=== PATIENT | female | born 1945 | race Caucasian/White ===

== ENCOUNTER 2017-05-23 15:20 | Observation (INO) | payer MEDICARE, BC ==
[~2017-05-23] VITALS: Ht 157.5 cm; Wt 56.0 kg
--- NOTE | ~2017-05-23 | ST ---
PATIENT:HARDIK BOBO MEDICAL RECORD: [id number] SEX: F LOCATION:[place] [id number] ORDER #: ADMISSION DATE: 05/23/17 AGE OF PATIENT: 71 REFERRING PHYSICIAN: INTERPRETING PHYSICIAN: TOM OBRIEN MD DATE OF SERVICE: 05/24/2017 Nuclear Stress Test The patient underwent a standard Lexiscan stress test without complications. The patient had 12.9 mCi of sestamibi injected for rest imaging at 8:15 in the morning and then after the standard Lexiscan stress test, which was tolerated without complications, 31.1 mCi of sestamibi was injected at 10:15. FINDINGS: The patient tolerated the procedure well. The ejection fraction was calculated to be normal. The imaging demonstrated no evidence of significant ischemia. There were no wall motion abnormalities. This is a negative test for inducible ischemia. There was a mild attenuation artifact inferiorly. TRANSINT:[id number] Voice Confirmation ID: [id number] DOCUMENT ID: [id number] TOM OBRIEN MD CC: [id number] DICTATION DATE: 05/25/172000 CUSTOMER CARE ASSOCIATE: 05/25/17 2302 DIS IN 05/24/17 [facility] [address] [place] [address]
--- NOTE | ~2017-05-23 | EC ---
PATIENT:HARDIK BOBO DATE OF SERVICE: 05/23/17 SEX: F MEDICAL RECORD: [id number] DATE OF : [birth year] LOCATION:D.M2 D.212 AGE OF PATIENT: 71 ADMISSION DATE: 05/23/17 REFERRING PHYSICIAN: INTERPRETING PHYSICIAN: TOM OBRIEN MD ECHOCARDIOGRAM REPORT ECHO CHARGES 4 ECHO COMPLETE CLINICAL DIAGNOSIS: CP ECHOCARDIOGRAPHIC MEASUREMENTS (adult normal given) AC root (d.<3.7cm) 3.3 cm LV Septum d (<1.2 cm> 1.2 cm Valve Excursion 2.2 cm LV Septum (systole) 1.8 cm Left Atria (s.<4.0cm> 2.8 cm LVPW d(<1.2cm) 14.2 cm RV (d.<2.3cm) 2.6 cm LVPW (sytole) 1.9 cm LV diastole(<5.6CM) 5.4 cm MV E-F(>70mm/sec) cm LV systole 3.3 cm LVOT Diameter 1.8 cm MV exc.(>10mm) cm Est.ejection fraction (50-75%) % Pericardial Effusion N DOPPLER: LVIT cm/sec A 122 cm/sec E 64.0 cm/sec LA cm/sec RVSP 32.1 mmHg LVOT 83.0 cm/sec AOP1/2T 545.0m/s Asc. Ao 145 cm/sec RVOT 51.0 cm/sec RA cm/sec PA 87.0 cm/sec AV Gradient Peak 8.4 mmHg AV Mean 4.1 mmHg AV Area 1.9 cm MV Gradient Peak 6.2 mmHg MV Mean 1.7 mmHg MV Area cm COMMENTS: Assembler For Puller Over Machine: Dagmar DELVALLEOE Nitro Man: 4 Dr. Obrien TAPE# PACS DATE OF SERVICE: 05/25/2017 PROCEDURE: Transthoracic echocardiogram FINDINGS: 1. The left ventricle has mild concentric left ventricular hypertrophy. Inflow characteristics are consistent with diastolic dysfunction. The overall ejection fraction is normal to hyperdynamic at 65% to 70%. 2. The right ventricle was shown to be mildly dilated or at least on the upper limits of normal. ECHOCARDIOGRAM REPORT [id number] HARDIK BOBO 3. The right atrium is normal size, normal function. 4. The left atrium is normal size, normal function. 5. The mitral valve is shown to have mild degenerative changes with moderate mitral regurgitation. 6. The aortic valve is also shown to have some aortic sclerosis with grossly normal function and mild to moderate aortic insufficiency. 7. The tricuspid valve has mild to moderate tricuspid regurgitation with RVSP of 32 mmHg. 8. The pulmonic valve has mild pulmonic insufficiency. 9. The pericardium is shown to have no pericardial effusion. 10. The IVC is not well visualized. TRANSINT:[id number] Voice Confirmation ID: [id number] DOCUMENT ID: [id number] TOM OBRIEN MD CC: [id number] DICTATION DATE: 05/25/172030 QUALITY ASSURANCE SUPERVISOR TRIM: 05/26/17 0152 DIS IN 05/24/17 [facility] [address] [place] [address]
[2017-05-23 15:54] LABS: BASOPHILS 0.3 % (0-2); HEMATOCRIT 32.4 % (36.0-48.0); HEMOGLOBIN 10.9 g/dL (12-16); IMMATURE GRANULOCYTES 0.1 % (0-5); LYMPHOCYTES 15.8 % (15-50); MCHC 33.6 g/dL (31.0-37.0); MCV 89.3 fL (80.0-100.0); MEAN PLATELET VOLUME 10.2 fL (7.4-10.4); MONOCYTES 6.1 % (2-11); NEUTROPHILS 75.7 % (40-80); PLATELET COUNT 162 10x3/uL (130-400); RBC 3.63 10x6/uL (4.00-5.40); RDW 13.4 % (11.5-14.5); WBC 7.9 10x3/uL (4.8-10.8)
[2017-05-23 16:09] LABS: ALBUMIN 3.6 g/dL (3.4-5.0); ALKALINE PHOSPHATASE 78 U/L (46-116); ALT (SGPT) 18 U/L (10-68); CALC OSMOLALITY 285 mosm/kg (275-300); CARBON DIOXIDE 29.3 mmol/L (21.0-32.0); CHLORIDE - SERUM 105 mmol/L (98-107); CREATININE - SERUM 1.1 mg/dL (0.6-1.3); GLUCOSE 127 mg/dL (74-106); POTASSIUM - SERUM 3.3 mmol/L (3.5-5.1); PROTEIN - SERUM 6.8 g/dL (6.4-8.2); SODIUM 142 mmol/L (136-145); UREA NITROGEN 16 mg/dL (7-18); eGFR NON AFRICAN AMERICAN 52 mL/min (90-120)
[2017-05-23 16:19] LABS: CHOL - HDL RATIO 1.7 ratio (2.3-4.1); CHOLESTEROL, TOTAL 124 mg/dL (0-200); CKMB 0.3 U/L (0.0-3.6); CREATINE KINASE 55 UL (21-215); HDL CHOLESTEROL 75 mg/dL (32-96); LDL CHOLESTEROL 37 mg/dL (0-100); LDL-HDL RATIO 0.5 ratio (1.5-3.5); TRIGLYCERIDE 63 mg/dL (30-200)
[2017-05-23 16:23] LABS: TROPONIN-I < 0.017 ng/mL (0.000-0.060)
[2017-05-23 20:15] VITALS: BP 149/60
[2017-05-23 20:25] VITALS: BP 149/60; Ht 157.5 cm; Wt 56.0 kg
[2017-05-23] MEDS ORDERED: ACETAMINOPHEN325 MG PO (20:57)
[2017-05-23] MEDS ORDERED: WELLBUTRIN XL150 M1 PO (20:58)
[2017-05-23] MEDS ORDERED: LUNESTA3 MG PO (20:58)
[2017-05-23] MEDS ORDERED: SINGULAIR10 MG PO (20:59)
[2017-05-23] MEDS ORDERED: TRAZODONE HCL50 MG PO (20:59)
[2017-05-23] MEDS ORDERED: ZOCOR20 MG PO (21:00)
[2017-05-23] MEDS ORDERED: LOSARTAN POTASS25 MG PO (21:01)
[2017-05-23 23:42] VITALS: BP 140/50
[2017-05-24 04:49] VITALS: BP 138/48
[2017-05-24 07:49] VITALS: BP 152/53
[2017-05-24 11:48] VITALS: BP 119/68
[2017-05-24 15:21] VITALS: BP 150/51
== END 2017-05-24 18:42 | disposition home or self-care (01) ==
LOC: D.ER 15:20 → D.M2 18:21 → OBSVTIME 18:21 → D.M2 05-24 18:42
PROVIDERS: Emergency Medicine; ADMIT Internal Medicine Cardiovascular Disease
DX: R07.9 Chest pain, unspecified (principal); I10 Essential (primary) hypertension

== ENCOUNTER 2018-03-30 17:18 | Inpatient (IN) | payer MEDICARE, BC ==
[~2018-03-30] VITALS: Ht 157.5 cm; Wt 57.4 kg
--- NOTE | ~2018-03-30 | HEMODYNAMI ---
PATIENT:HARDIK BOBO MEDICAL RECORD: [id number] : 47 LOCATION:[facility] ADMISSION DATE: 03/31/18 Generatedon:03/31/201812:03 Patient name: HARDIK BOBO Patient #: [id number] SSN: : 1945 Date of study: 03/31/2018 Page: Of Hemodynamic Procedure Report Patient Data Patient Demographics Procedure consent was obtained First Name: HARDIK Gender: Female Last Name: JIHAN : 1945 [facility] Initial: G Age: 72 year(s) Patient #: [id number] Race: Additional ID: [id number] Contact details [address]: [address] [place] [address] [address] State: [place] City: [place] Zip code: [address] Admission Admission Data Admission Date: 03/31/2018 Admission Time: 0:18 Room #: JOSE A01 Lab Results Lab Result Date: 03/31/2018 Lab Result Time: 0:00 Biochemistry Name Units Result Min Max BUN mg/dl 22 --(----)-* 7 18 Creatinine mg/dl 0.9 --(-*--)-- 0.6 1.3 Procedure Procedure Types Cath Procedure Diagnostic Procedure [facility] w/Coronaries PCI Procedure Coronary Stent Coronary Stent Initial Procedure Description Procedure Date Procedure Date: 03/31/2018 Procedure Start Time: 11:22 Procedure End Time: 12:02 Procedure Staff Name Function Wilian Kent MD Performing Physician Ha Reddy RT Monitor Murali Larry RN Nurse Lesia Weeks RT Scrub Procedure Data Cath Procedure Fluoroscopy Diagnostic fluoroscopy Total fluoroscopy Time: 6.6 time: 6.6 min min Diagnostic fluoroscopy Total fluoroscopy dose: dose: 192.44 mGy 192.44 mGy Contrast Material Contrast Material Type Amount (ml) Isovue 300 111 Entry Location Entry Primary Successful Side Size Upsize Upsize Entry Closure Succes sful Closure Location (Fr) 1 (Fr) 2 (Fr) Remarks Device Remarks Femoral Right 5 Fr 6 Fr Exoseal artery Short Estimated blood loss: 20 ml Diagnostic catheters Device Type Used For End Catheter Placement MULTIPACK JL 4.0 5Fr Procedure catheter MULTIPACK 3DRC 5Fr Procedure catheter MULTIPACK Pigtail 5 Fr Procedure catheter Procedure Medications Medication Administration Route Dosage Oxygen etCO2 Nasal cannula 2 l/min Heparin Flush Bag added to field 2 bags (1000units/500ml NS) 0.9% NaCl I.V. 100 ml/hr Fentanyl I.V. 50 mcg Versed I.V. 1 mg Fentanyl I.V. 50 mcg Versed I.V. 1 mg Fentanyl I.V. 50 mcg Heparin Bolus I.V. 6000 units Fentanyl I.V. 50 mcg Hemodynamics Rest Heart Rate: 58 (bpm) Pressure Samples Time Site Value (mmHg) Purpose Heart Use Rate(bpm) 11:33 LV 133/-8,12 Snapshot 78 Snapshots Pre Cath Intra NCS Post Cath Vital Signs Time Heart Resp SPO2 etCO2 NIBP (mmHg) Rhythm Pain Sedation Rate (ipm) (%) (mmHg) Status Level (bpm) 11:05:40 66 17 99 0 153/73(101) NSR 0 (11) 10(A) , No pain 11:09:56 60 17 100 24.7 132/73(112) NSR 0 (11) 10(A) , No pain 11:14:06 76 17 99 12 140/72(116) NSR 0 (11) 10(A) , No pain 11:18:22 62 16 98 33 124/62(96) NSR 0 (11) 10(A) , No pain 11:22:32 64 16 95 37.5 130/64(108) NSR 0 (11) 9(A) , No pain 11:26:48 65 17 97 29.2 119/56(96) NSR 0 (11) 9(A) , No pain 11:30:58 70 16 97 24 125/58(79) NSR 0 (11) 9(A) , No pain 11:35:12 81 17 97 40.5 123/57(90) NSR 0 (11) 9(A) , No pain 11:39:26 74 16 97 39.8 125/54(88) NSR 0 (11) 9(A) , No pain 11:43:40 83 17 97 42 127/56(85) NSR 0 (11) 9(A) , No pain 11:47:52 87 16 98 40.5 133/63(103) NSR 0 (11) 9(A) , No pain 11:52:02 83 17 98 35.3 145/73(98) NSR 0 (11) 9(A) , No pain 11:56:18 79 11 98 33 144/68(116) NSR 0 (11) 9(A) , No pain 12:00:32 75 9 99 30.8 151/74(111) NSR 0 (11) 9(A) , No pain Medications Time Medication Route Dose Verified Delivered Reason Notes Effectiveness by by 11:07:03 Oxygen etCO2 2 Wilian Murali Per physician Nasal l/min Yoli Larry RN cannula 11:07:12 Heparin Flush added 2 Wilian Murali used for Bag to bags Yoli Larry RN procedure (1000units/500ml field NS) 11:07:23 0.9% NaCl I.V. 100 Wilian Murali Per physician ml/hr Yoli Larry RN, MD 11:18:49 Fentanyl I.V. 50 Wilian Murali for sedation estrella Larry RN, MD 11:18:57 Versed I.V. 1 mg Wilian Murali for sedation Yoli Larry RN, MD 11:35:11 Fentanyl I.V. 50 Wilian Murali for sedation estrella Larry RN, MD 11:35:19 Versed I.V. 1 mg Wilian Murali for sedation Yoli Larry RN, MD 11:37:26 Fentanyl I.V. 50 Wilian Murali for sedation estrella Larry RN, MD 11:37:42 Heparin Bolus I.V. 6000 Wilian Murali for units Yoli Larry RN anticoagulation 11:40:42 Fentanyl I.V. 50 Wilian Murali for sedation estrella Larry RN, MD Procedure Log Time Note 10:50:23 Informed consent obtained and on chart 10:50:40 Diagnostic Cath Status : Elective 10:51:12 Murali Larry RN sent for patient. Start room use. 10:51:13 Time tracking: Regular hours (M-F 7:00 - 5:00) 10:51:18 Plan of Care:Hemodynamics will remain stable., Cardiac rhythm will remain stable., Comfort level will be maintained., Respiratory function will remain adequate., Patient/ family verbilizes understanding of procedure., Procedure tolerated without complication., Recovers from procedure without complications.. 10:59:54 Patient received from Med II to CCL 3 Alert and oriented. Tansferred to table in Supine position. 10:59:55 Warm blankets applied, and rancho hugger turned on for patient comfort. 10:59:56 Correct patient and procedure confirmed by team. 10:59:56 ECG and BP/O2 sat monitors applied to patient. 11:04:44 Vital chart was started 11:07:03 Oxygen 2 l/min etCO2 Nasal cannula was administered by Murali Larry RN; Per physician; 11:07:12 Heparin Flush Bag (1000units/500ml NS) 2 bags added to field was administered by Murali Larry RN; used for procedure; 11:07:23 0.9% NaCl 100 ml/hr I.V. was administered by Murali Larry RN; Per physician; 11:10:04 Baseline sample Acquired. 11:10:12 Rhythm: sinus bradycardia 11:10:27 Full Disclosure recording started 11:11:30 H&P Date Dictated: 03/30/2018 H&P Addendum completed by physician on day of procedure. (MUST COMPLETE FOR ALL OUTPATIENTS), ER History on chart.. 11:11:32 Pre-procedure instructions explained to patient. 11:11:50 Pre-op teaching completed and patient verbalized understanding. 11:12:03 Family in waiting room. 11:12:15 Patient NPO since Midnight. 11:15:00 ALLERGIES NOTED ON CHART 11:15:46 Is the patient allergic to Iodine/contrast media? No. 11:15:49 Is patient on blood thinner?Yes 11:15:54 ACC The patient was administered the following blood thiners within the last 24 hours: ACCPlavix 11:15:57 Patient diabetic? No. 11:16:02 Patient not . Patient is over age 55. 11:16:48 ----Pre-sedation anethsthesia assessment.---- 11:16:50 Previous problem with sedation/anesthesia? No ? 11:16:52 Snore? Yes 11:17:06 Sleep apnea? No 11:17:15 Deviated septum? No 11:17:16 Opens mouth fully? Yes 11:17:18 Sticks out tongue? Yes 11:17:25 Airway obstruction? Yes ASTHMA 11:17:34 Dentures? No ? 11:17:39 Pre procedure: right dorsailis pedis pulse 1+ Palpable, but thready & weak; easily obliterated 11:17:43 Modified Tank's test Ulnar > 7 seconds. 11:17:46 Patient pain scale 0/10 ?. 11:17:53 IV patent on arrival in left hand with 0.9% NaCl at [facility]. 11:18:30 Lab Result : BUN 22 mg/dl 11:18:30 Lab Result : Creatinine 0.9 mg/dl 11:18:35 Lab results completed and on chart. 11:18:43 Right groin area was prepped with chlora-prep and draped in sterile fashion 11:18:44 Alarms reviewed by R. N. 11:18:45 Sharps counted by scrub and verified by R.N. 11:18:46 Physician arrived 11:18:47 --------ALL STOP TIME OUT------ 11:18:48 Final Timeout: patient, procedure, and site verified with staff and physician. All members of the team are in agreement. 11:18:49 Fentanyl 50 mcg I.V. was administered by Murali Larry RN; for sedation; 11:18:53 Right Radial & Right Groin site verified by team. 11:18:55 Zero performed for pressure channel P1 11:18:57 Versed 1 mg I.V. was administered by Murali Larry RN; for sedation; 11:19:02 Physical assessment completed. ASA score P 2 - A patient with mild systemic disease as per Wilian Kent MD. 11:19:06 Sedation plan: IV Moderate Sedation Medication:Versed, Fentanyl 11:19:54 Use device set Femoral Dx 11:19:56 ACIST Syringe (81306) opened to sterile field. 11:19:57 Bag Decanter () opened to sterile field. 11:20:02 Medline Cath Pack ([id number]) opened to sterile field. 11:20:03 DIAGNOSTIC WIRE .035 260cm J wire (859286) opened to sterile field. 11:20:06 ACIST Hand Control (34463) opened to sterile field. 11:20:07 ACIST Manifold (47964) opened to sterile field. 11:20:18 Tegaderm 4 x 4 (1626W) opened to sterile field. 11:20:29 SHEATH Prelude 5Fr 0.035 (NNG-4C-48-035) opened to sterile field. 11:22:07 DIAGNOSTIC Multipack 5Fr catheter set (QW7578) opened to sterile field. 11:22:24 Procedure started. 11::33 Local anesthetic to right femoral artery with Lidocaine 2% by Wilian Kent MD.INITIAL ACCESS ONLY 11:24:27 MICROPUNCTURE 4FR [employer] (V56294) opened to sterile field. 11:24:44 Access obtained with 4Fr micropunture. 11:25:11 A 5 Fr sheath was inserted into the Right Femoral artery 11:25:42 A MULTIPACK JL 4.0 5Fr catheter was advanced over the wire and used for Procedure. 11:26:48 LCA angiography performed. 11:29:12 Catheter removed. 11:29:56 A MULTIPACK 3DRC 5Fr catheter was advanced over the wire and used for Procedure. 11:30:38 RCA angiography performed. 11:31:00 Catheter removed. 11:31:24 A MULTIPACK Pigtail 5 Fr catheter was advanced over the wire and used for Procedure. 11:31:43 SHEATH Prelude 6Fr 0.035 (JTO-9D-83-035) opened to sterile field. 11:31:45 INFLATOR Merit BasixCompak (TG8720) opened to sterile field. 11:33:56 GUIDE 6FR ART 3.5 catheter ([id number]) opened to sterile field. 11:34:09 LV hemodynamics recorded. 11:34:12 LV gram done using SALOMON 11:34:17 EF : 50 % 11:35:11 Fentanyl 50 mcg I.V. was administered by Murali Larry RN; for sedation; 11:35:19 Versed 1 mg I.V. was administered by Murali Larry RN; for sedation; 11:35:19 BMW 190cm Morris 2 J wire (1700414V) opened to sterile field. 11:35:28 Catheter removed. 11:35:31 Proceeding to intervention. 11:36:40 Sheath upsized to a 6 Fr Short. 11:37:02 COPILOT Valve Control (4000719) opened to sterile field. 11:37:26 Fentanyl 50 mcg I.V. was administered by Murali Larry RN; for sedation; 11:37:42 Heparin Bolus 6000 units I.V. was administered by Murali Larry RN; for anticoagulation; 11:37:45 6 Fr ? guide catheter was inserted over the wire 11:37:56 6 Fr ART 3.5 guide catheter was inserted over the wire 11:39:45 BMW wire advanced. 11:39:48 Wire advanced across lesion. 11:40:42 Fentanyl 50 mcg I.V. was administered by Murali Larry RN; for sedation; 11:42:12 Place stent Inflation Number: 1 A ABRAHAM RX 3.5 x 30 stent ([id number]) was prepped and advanced across the Mid RCA. The stent was deployed at 14 PHUC for 0:10 (min:sec). 11:42:55 Stent catheter was removed intact over wire. 11:46:46 Inflate balloon Inflation number: 2 A NC EUPHORA 3.5 x 15 balloon ([id number]) was prepped and advanced across the Mid RCA, then inflated to 20 PHUC for 0:10 (min:sec). 11:47:09 Inflation number: 3 The NC EUPHORA 3.5 x 15 balloon ([id number]) was reinflated across the Mid RCA, to 15 PHUC for 0:10 (min:sec). 11:47:43 Balloon removed over the wire. 11:49:47 Wire removed. 11:49:48 Guide catheter removed. 11:50:00 EXOSEAL 6Fr (EX600) opened to sterile field. 11:50:39 Sheath removed intact; hemostasis achieved with Exoseal to the Right Femoral artery. 11:50:41 Procedure ended.(Physican Out) 11:54:28 Fluoroscopy time 06.60 minutes. 11:54:35 Flurop Dose total: 192.44 11:54:35 Fluoroscopy dose: 192.44 mGy 11:54:45 Contrast amount:Isovue 300 111ml. 11:54:46 Sharps counted by scrub and verified by R.N. 11:59:29 Post right femoral artery:bleeding 11:59:44 Femstop placed over the right femoral artery at 171 mmHg. Hemostasis achieved. 12:00:07 FEMSTOP Gold (V71430) opened to sterile field. 12:01:05 Post procedure: right dorsailis pedis pulse 0-Absent. 12:01:13 Post-procedure physical assessment completed. ASA score P 2 - A patient with mild systemic disease as per Wilian Kent MD. 12:01:23 Procedure type changed to Cath procedure, Diagnostic procedure, LHC, LHC w/Coronaries, PCI procedure, Coronary Stent, Coronary Stent Initial 12:01:55 Post procedure rhythm: sinus rhythm 12:01:59 Estimated blood loss: 20 ml 12:02:00 Post procedure instruction explained to patient.Patient verbalizes understanding. 12:02:01 Patient needs reinforcement of post procedure teaching. 12:02:03 Procedure and supply charges have been captured, reviewed, submitted and are correct. 12:02:04 Vital chart was stopped 12:02:05 See physician's report for complete and final results. 12:02:08 Report given to Pre/Post Procedure Room. 12:02:13 Patient transfered to Pre/Post Procedure Room with Stretcher. 12:02:16 Procedure ended. 12:02:16 Full Disclosure recording stopped 12:02:23 End room use (Document Last) Intervention Summary Intervention Notes Time ActionType Lesion and Equipment Used Action# Pressure Duration Attributes 11:42:12 Place stent Mid RCA ABRAHAM RX 3.5 x 1 14 00:10 30 stent ([id number]) 11:46:46 Inflate Mid RCA NC EUPHORA 3.5 2 20 00:10 balloon x 15 balloon ([id number]) 11:47:09 Reinflate Mid RCA NC EUPHORA 3.5 3 15 00:10 balloon x 15 balloon ([id number]) Device Usage Item Name Manufacture Quantity Catalog Number Hospital Part Current Minimal Lot# / Charge Number Stock Stock Serial# Code ACIST Syringe Acist 1 59031 [id number] [id number] [id number] 20 (76264) Medical Systems Inc Bag Decanter Microtek 1 2001S 522361 53124 244116 5 () Medical Inc. Medline Cath Cardinal 1 [id number] 637729 90564 068232 5 [employer] ([id number]) DIAGNOSTIC WIRE St Giovanny 1 571660 484871 721432 966718 30 .035 260cm J wire (361971) ACIST Hand Acist 1 73109 584990 004978 375455 5 Control (73501) Medical Systems Inc ACIST Manifold Acist 1 94798 579429 143206 480013 5 (87096) Medical Systems Inc Tegaderm 4 x 4 3M 1 1626W 196703 461668 113261 5 (1626W) SHEATH Prelude Merit 1 BVY-1B-79-035 827550 495545 871653 5 5Fr 0.035 Medical ([id number]) DIAGNOSTIC Cardinal 1 IT0462 961129 94720 395473 30 Multipack 5Fr Health catheter set (VX7095) MICROPUNCTURE Cook Medical 1 L41547 763169 509833 247142 5 4FR [facility] (N31048) MULTIPACK JL Cardinal 1 892264 5 4.0 5Fr Health catheter MULTIPACK 3DRC Cardinal 1 315793 5 5Fr catheter Health MULTIPACK Cardinal 1 498103 5 Pigtail 5 Fr Health catheter SHEATH Prelude Merit 1 FYS-8V-55-35 387005 7947870 889808 5 6Fr 0.035 Medical (OUO-6W-58-035) INFLATOR Merit Merit 1 MQ6209 526982 622691 026942 15 Basix[employer] Solutions Medical (IP5973) GUIDE 6FR ART [place] 1 [id number] 940947 661279 313001 0 3.5 catheter Scientific ([id number]) BMW 190cm Guzman 1 [id number] 706862 13348 502093 5 Morris 2 J Vascular wire ([id number]) COPILOT Valve Guzman 1 8015392 796183 247024 441940 5 Control Vascular (8939940) ABRAHAM RX 3.5 x Medtronic 1 [id number] 355080 0535660 303584 5 [id number] 30 stent ([id number]) NC EUPHORA 3.5 Medtronic 1 [id number] 362550 005006 454749 1 [id number] x 15 balloon ([id number]) EXOSEAL 6Fr Cardinal 1 EX600 475892 278146 999937 10 (EX600) Health FEMSTOP Gold St Giovanny 1 [id number] 310646 521047 839806 5 ([id number]) Signature Audit [place] Stage Time Signature Unsigned Intra-Procedure 03/31/2018 Ha Reddy 12:03:01 PM RT(R) (CV) Signatures Monitor : Ha Reddy RT Signature : Date : Time : [address] [place] [address]
[~2018-03-30 17:18] MED LIST: ACETAMINOPHEN325 MG PO; LOSARTAN POTASS25 MG PO; LUNESTA3 MG PO; SINGULAIR10 MG PO; TRAZODONE HCL50 MG PO; WELLBUTRIN XL150 M1 PO; ZOCOR20 MG PO
[2018-03-30 18:34] LABS: BASOPHILS 0.4 % (0-2); EOSINOPHILS 0.2 % (0-7); HEMATOCRIT 34.7 % (36.0-48.0); HEMOGLOBIN 11.5 g/dL (12-16); IMMATURE GRANULOCYTES 0.1 % (0-5); LYMPHOCYTES 16.2 % (15-50); MCH 29.9 pg (26.0-34.0); MCHC 33.1 g/dL (31.0-37.0); MCV 90.4 fL (80.0-100.0); MEAN PLATELET VOLUME 10.3 fL (7.4-10.4); MONOCYTES 6.1 % (2-11); PLATELET COUNT 191 10x3/uL (130-400); RBC 3.84 10x6/uL (4.00-5.40); RDW 13.8 % (11.5-14.5); WBC 8.3 10x3/uL (4.8-10.8)
[2018-03-30 19:07] LABS: ALBUMIN 3.5 g/dL (3.4-5.0); ALKALINE PHOSPHATASE 74 U/L (46-116); ALT (SGPT) 51 U/L (10-68); BILIRUBIN - TOTAL 0.38 mg/dL (0.2-1.3); CALC OSMOLALITY 285 mosm/kg (275-300); CHLORIDE - SERUM 106 mmol/L (98-107); CREATININE - SERUM 0.9 mg/dL (0.6-1.3); GLUCOSE 92 mg/dL (74-106); POTASSIUM - SERUM 3.8 mmol/L (3.5-5.1); SODIUM 142 mmol/L (136-145); UREA NITROGEN 22 mg/dL (7-18); eGFR NON AFRICAN AMERICAN 65 mL/min (90-120)
[2018-03-30 19:28] LABS: CKMB 0.9 U/L (0.0-3.6); TROPONIN-I 0.043 ng/mL (0.000-0.060)
[2018-03-30 20:03] LABS: APPEARANCE CLEAR (CLEAR); BILIRUBIN NEGATIVE (NEGATIVE); COLOR YELLOW (YELLOW); GLUCOSE NEGATIVE (NEGATIVE); KETONE NEGATIVE (NEGATIVE); NITRITE NEGATIVE (NEGATIVE); PROTEIN NEGATIVE (NEGATIVE); UROBILINOGEN NORMAL (NORMAL)
[2018-03-30 20:04] LABS: BACTERIA FEW /hpf (NONE SEEN); RED CELLS - URINE OCC /hpf (0-5)
[2018-03-30 20:15] LABS: THYROID STIMULATING HORMONE 2.68 uIU/mL (0.36-3.74)
[2018-03-30 23:21] VITALS: BP 143/60
[2018-03-31] VITALS (9 sets, daily range): BP systolic 117–151; BP diastolic 41–70; Ht 157.5 cm; Wt 57.4 kg
[2018-03-31 04:22] LABS: CKMB 3.9 U/L (0.0-3.6); CREATINE KINASE 66 UL (21-215)
[2018-03-31 08:38] LABS: ANION GAP 13.1 mmol/L (8-16); BASOPHILS 0.2 % (0-2); CALCIUM 8.9 mg/dL (8.5-10.1); CARBON DIOXIDE 24.6 mmol/L (21.0-32.0); CREATININE - SERUM 0.9 mg/dL (0.6-1.3); EOSINOPHILS 0.2 % (0-7); HEMATOCRIT 34.8 % (36.0-48.0); HEMOGLOBIN 11.5 g/dL (12-16); IMMATURE GRANULOCYTES 0.2 % (0-5); LYMPHOCYTES 23.1 % (15-50); MCH 29.6 pg (26.0-34.0); MCV 89.7 fL (80.0-100.0); MEAN PLATELET VOLUME 10.2 fL (7.4-10.4); NEUTROPHILS 68.3 % (40-80); PLATELET COUNT 202 10x3/uL (130-400); POTASSIUM - SERUM 3.7 mmol/L (3.5-5.1); RBC 3.88 10x6/uL (4.00-5.40); RDW 13.9 % (11.5-14.5); WBC 9.1 10x3/uL (4.8-10.8)
[2018-03-31 10:23] LABS: CKMB 3.2 U/L (0.0-3.6); CREATINE KINASE 73 UL (21-215)
[2018-03-31 10:25] LABS: TROPONIN-I 0.428 ng/mL (0.000-0.060)
[2018-03-31] MEDS ORDERED: PLAVIX75 MG PO (12:04)
[2018-03-31] MEDS ORDERED: LOPRESSOR25 MG PO (12:05)
[2018-04-01 00:32] VITALS: BP 120/53
[2018-04-01 05:07] VITALS: BP 121/44
[2018-04-01 06:31] LABS: BASOPHILS 0.3 % (0-2); EOSINOPHILS 1.5 % (0-7); HEMATOCRIT 32.5 % (36.0-48.0); HEMOGLOBIN 10.6 g/dL (12-16); IMMATURE GRANULOCYTES 0.3 % (0-5); LYMPHOCYTES 16.6 % (15-50); MCH 29.4 pg (26.0-34.0); MCHC 32.6 g/dL (31.0-37.0); MCV 90.3 fL (80.0-100.0); MEAN PLATELET VOLUME 9.8 fL (7.4-10.4); MONOCYTES 8.4 % (2-11); NEUTROPHILS 72.9 % (40-80); PLATELET COUNT 193 10x3/uL (130-400); RDW 14.4 % (11.5-14.5); WBC 7.3 10x3/uL (4.8-10.8)
[2018-04-01 07:05] LABS: ALBUMIN 3.2 g/dL (3.4-5.0); ANION GAP 9.6 mmol/L (8-16); BILIRUBIN - TOTAL 0.38 mg/dL (0.2-1.3); CALCIUM 8.3 mg/dL (8.5-10.1); CARBON DIOXIDE 27.6 mmol/L (21.0-32.0); CREATININE - SERUM 1.1 mg/dL (0.6-1.3); POTASSIUM - SERUM 4.2 mmol/L (3.5-5.1); PROTEIN - SERUM 5.8 g/dL (6.4-8.2)
[2018-04-01 08:26] LABS: TROPONIN-I 1.127 ng/mL (0.000-0.060)
[2018-04-01 08:49] VITALS: BP 127/47
[2018-04-01 11:16] VITALS: BP 110/46
[2018-04-01 15:47] VITALS: BP 144/97
[2018-04-01 17:35] LABS: ALBUMIN 3.3 g/dL (3.4-5.0); BILIRUBIN - DIRECT 0.15 mg/dL (0.00-0.30); BILIRUBIN - INDIRECT 0.23 mg/dL (0.00-1.00); BILIRUBIN - TOTAL 0.38 mg/dL (0.2-1.3); PROTEIN - SERUM 5.8 g/dL (6.4-8.2)
[2018-04-01 20:56] VITALS: BP 124/47
[2018-04-02 00:46] VITALS: BP 101/45
[2018-04-02 05:03] VITALS: BP 106/49
[2018-04-02 05:52] LABS: ALBUMIN 2.9 g/dL (3.4-5.0); BILIRUBIN - DIRECT 0.13 mg/dL (0.00-0.30); BILIRUBIN - INDIRECT 0.2 mg/dL (0.00-1.00); BILIRUBIN - TOTAL 0.33 mg/dL (0.2-1.3); PROTEIN - SERUM 5.3 g/dL (6.4-8.2)
[2018-04-02] MEDS ORDERED: ASPIRIN81 MG PO (09:31)
== END 2018-04-02 10:45 | disposition home or self-care (01) | DRG 246 ==
LOC: D.ER 17:18 → D.EDHOLD 03-31 00:18 → D.M2 03-31 00:18 → D.CLR 03-31 00:18 → D.M2 03-31 13:28
PROVIDERS: Family Medicine; Internal Medicine Cardiovascular Disease
PROC: B211YZZ Fluoroscopy of Multiple Coronary Arteries using Other Contrast (ICD-10-PCS; 2018-03-31)
PROC: B215YZZ Fluoroscopy of Left Heart using Other Contrast (ICD-10-PCS; 2018-03-31)
PROC: 027034Z Dilation of Coronary Artery, One Artery with Drug-eluting Intraluminal Device, Percutaneous Approach (ICD-10-PCS; principal; 2018-03-31 08:30)
PROC: 4A023N7 Measurement of Cardiac Sampling and Pressure, Left Heart, Percutaneous Approach (ICD-10-PCS; 2018-03-31 08:30)
DX: I97.190 Other postprocedural cardiac functional disturbances following cardiac surgery (principal); I21.A9 Other myocardial infarction type; T82.857A Stenosis of other cardiac prosthetic devices, implants and grafts, initial encounter; I25.119 Atherosclerotic heart disease of native coronary artery with unspecified angina pectoris